=== PATIENT | female | born 1985 | race Caucasian/White ===

== ENCOUNTER 2024-08-02 10:05 | Day surgery (SDC) | payer OTHER, SELFPAY ==
[2024-08-02] VITALS (13 sets, daily range): BP systolic 108–125; BP diastolic 61–78; PULSE 76–95; RESP 13–16; TEMP 36.6–38.1; O2SAT 97–100; BMI 22.4
--- NOTE | 2024-08-02 10:15 | APP_PTH ---
PATIENT: MICHELET LOU LOC: [facility] [place] U#:[id number] AGE/SX: 38/F ROOM: RE08/02/[address]: Dr. Brodie Paul MD : 1985 BED: DIS: 08/02/2024 SPEC #: [id number] RECD: 08/03/24 11:32 STATUS: HUGO REYoselin #: [id number] FLORENCIO: 08/02/24 10:[address]: Brodie Paul DEPT: SURGICAL PATHOLOGY RECD BY: Josue Bob ENTERED: 08/03/24 11:32 SP TYPE: APPENDIX OTHR DR: Dr. Melissa Colvin MD Tissues: A - Appendix, NOS Procedures: Surgery Specimen Level III HEADER OPERATION: Laparoscopic appendectomy PRE-OP DIAGNOSIS: Acute appendicitis with localized peritonitis TISSUE SUBMITTED: A- Appendix MICROSCOPIC DIAGNOSIS A. Appendix, appendectomy: * Acute suppurative appendicitis with transmural inflammation and periappendicitis * One benign periappendiceal lymph node MICROSCOPIC DESCRIPTION Slides are reviewed. GROSS DESCRIPTION A. Received in formalin in a container labeled with the patient's name, date of , and appendix is an intact 6.8 x 1.1 cm appendectomy specimen with mesoappendix measuring 2 cm in thickness. The serosa is delgado-ramirez and predominately smooth with a moderate amount of adherent exudate. The stapled margin is inked black and serial sections reveal a lumen ranging from 0.3 to 0.7 cm. A 0.5 x 0.4 x 0.3 cm firm fecalith is identified. The remaining lumen is filled with a creamy, thick white-pink material. There is an average wall thickness of 0.3 cm. No perforation is identified. Within the mesoappendix is a 0.3 x 0.3 x 0.3 cm delgado-pink lymph node candidate. Telephone Order Dispatcher sections:A1. Resection margin, en face with cross-sections with area of fecalith and lymph node candidateA2. Tip of appendix, bisected with exudate [facility] 08/07/2024 CPT:03377
--- NOTE | 2024-08-02 10:29 | EDS_ITS ---
HPI History of Present Illness Chief Complaint: Abd Pain Detail of Chief Complaint: Abdominal pain is localized to the right lower quadrant. Onset/Context/Timing Onset: Today and Hours Context: Sudden Onset Timing: Continuous Quality: Initially an explosion in her abdomen that was generalized and now localize Location: Proximity McBurney's point Current Severity: Mild Maximum Severity: Moderate Worsened by: Movement and palpation Relieved by: Nothing Associated Symptoms Associated Symptoms: Nausea and anorexia Narrative Narrative: Patient is a 38-year-old woman. She uses condoms with her for control. She denies fever, chills night sweats. She denies HEENT symptoms. She denies cardiac symptoms. She denies respiratory symptoms. She states this morning she had a explosion like sensation in her abdomen that was generalized. She now complaining of pain in the right lower quadrant. She denies intolerance to greasy or fried foods. She denies history of endometriosis, ovarian cysts. She has no symptoms of . There is no history of renal ureterolithiasis. There is no family history of renal or ureterolithiasis. She denies dysuria, frequency, urgency or hematuria. Prior similar symptoms: No Recent Illness/Hospitalization: No PFSH PFSH Medical History no medical history no medical history Home Medications ?Medication ?Instructions ?Recorded ?Last Taken ?Type NK 08/02/24 Unknown History Surgical History no surgical history no surgical history Social History (Updated 08/02/24 @ 11:[address] Colin Andres MD) household members: spouse and children Smoking Status: Never smoker ROS ROS ED Constitutional Constitutional ED: Denies chills, fever(s), subjective, sweats or weight loss Eyes Eyes: Denies blurry vision or change in vision ENT ENT ED: Denies ear pain, rhinorrhea or sore throat Cardiovascular Cardiovascular: Denies chest pain, palpitations or racing heartbeat Respiratory/Chest Respiratory/Chest: Denies cough, dyspnea or dyspnea on exertion Gastrointestinal Gastrointestinal: Reports abdominal pain, nausea and other Details: Anorexia. ; Denies constipation, diarrhea, melena or vomiting Genitourinary Genitourinary ED: Denies dysuria, hematuria or urinary frequency Musculoskeletal Musculoskeletal: Denies arthralgias, back pain or myalgias Integumentary Denies rash Neurologic Neurologic: Denies headache(s) or paresthesias Hematologic/Lymphatic Hematologic/Lymphatic: Reports systems reviewed and no addt'l complaints, except as documented EXAM Physical Exam Const Vital Signs: 08/02/24 10:07 Temperature 97.8 F Temperature Source Temporal Pulse Rate 95 Respiratory Rate 16 Blood Pressure 125/78 H Blood Pressure Mean 93 Pulse Ox 99 Oxygen Delivery Method Room Air Positive well nourished and well developed General Appearance ED: well developed, NAD and pallor HEENT Reports moist mucous membranes HEENT Narrative: Head is atraumatic, cephalic. Ears normal. Nares patent. Eyes PERRL and EOMs intact bilaterally General Eye ED: Negative for pale conjunctiva or scleral icterus Neck no lymphadenopathy, supple and no JVD Resp normal respiratory effort and clear to auscultation bilaterally Cardio regular rate, regular rhythm, S1 normal heart sound, S2 normal heart sound and no murmurs GI normal to inspection, nondistended, normoactive bowel sounds and non-distended; Negative for non-tender or hepatosplenomegaly Auscultation: hypoactive bowel sounds Palpation: soft, tender McBurney's point, guarding RLQ and rebound tenderness present other ( localized inferior McBurney's point); Negative for splenomegaly or mass Back/Spine no CVA tenderness Extremity normal to inspection Neuro oriented x3 and CN's II-XII intact bilaterally Sensorium / Orientation: alert Skin no rashes or lesions noted, no wounds and skin turgor normal General Skin Exam: elasticity normal and pallor MDM MDM MDM Narrative Medical decision making narrative: Differential diagnosis would include appendicitis, mesenteric adenitis, regional enteritis, diverticulitis, abdominal pain of unknown etiology. Workup included CBC, electrolyte panel, UA test and CT of the abdomen pelvis IV contrast. Lab Data Attestation: I reviewed the patient's lab results. Lab results narrative: White count is elevated 14.1 with shift. Labs: Laboratory Results - last 24 hr 08/02/24 11:02 WBC 14.1 H RBC 4.74 Hgb 14.0 Hct 41.3 MCV 87.1 MCH 29.5 MCHC 33.9 RDW Std Deviation 39.6 RDW Coeff of Mckayla 12.3 Plt Count 315 MPV 10.3 Immature Gran % (Auto) 0.400 Neut % (Auto) 89.7 H Lymph % (Auto) 6.4 L [place] % (Auto) 3.0 Eos % (Auto) 0.1 Baso % (Auto) 0.4 Absolute Neuts (auto) 12.7 H Absolute Lymphs (auto) 0.91 Nucleated RBC % 0 Sodium 139 Potassium 3.8 Chloride 106 Carbon Dioxide 22.9 Anion Gap 11 BUN 10 Creatinine 0.71 Estim Creat Clear Calc 104.47 Est GFR (MDRD) Non-Af 111 BUN/Creatinine Ratio 13.8 Glucose 107 H Calcium 9.3 Radiography Diagnostic Testing: CT was reviewed by me. Axial view was only available. The appendix appears abnormal. Will wait for the coronal/sagittal review. Patient not have appendicolith. The appendix is dilated. There is some mild inflammation. The success with appendicitis. Management Discussion w/another healthcare provider: Referral Coordinator (Spoke with Dr. Brodie Paul. He will send him to his nurse practitioner. He will then come up to see patient once he completes his present case.) Discharge Plan Triage Chief Complaint: Abd Pain ED Provider: Colin Andres Dx/Rx/DC Orders Clinical Impression: Acute appendicitis with localized peritonitis Prescriptions: No Action NK Primary Care Provider: Melissa Colvin Referrals: Melissa Colvni MD [Primary Care Provider] - Print Language: [place] Disposition Disposition: Acute Care Hospital [facility]
--- NOTE | 2024-08-02 11:15 | CT_ITS ---
PROCEDURE: ABDOMEN/PELVIS W IV CONT ONLY 08/02/2024 REASON FOR EXAM: ANOREXIA, PAIN IN PROXIMITY OF MCBURNEY'S POINT Diarrhea TECHNIQUE: Abdomen and pelvis CT with intravenous contrast. Coronal and Sagittal reconstruction series were provided. PATIENT PREPARATION: Per protocol ORAL CONTRAST TYPE: None. CONTRAST: Isovue-300 VOLUME: 90 mL IV One or more dose reduction techniques were used (e.g., Automated exposure control, adjustment of the mA and/or kV according to patient size, use of iterative reconstruction technique. RADIATION DOSE SUMMARY: DLP: 718.50 mGycm COMPARISON: None FINDINGS: Lung bases: Clear Liver: Normal size. No mass. Gallbladder: Within normal limits Spleen: Normal size. Pancreas: Normal size without evidence of mass surrounding inflammation or ductal dilation. Adrenals: No nodule Kidneys: Normal renal sizes. No hydronephrosis. Bladder: No wall thickening Reproductive Organs: Normal uterine size and contour. Ovaries are unremarkable. Bowel: No bowel obstruction. Appendix: Enlargement, wall thickening, and inflammatory stranding. Lymph nodes: No suspicious lymph node enlargement. Vasculature: The abdominal aorta and IVC are normal. Peritoneum / Retroperitoneum: Small free fluid in the pelvis Bones: Normal thoracolumbar vertebral alignment. CT/Abdomen/Pelvis W IV Cont ONLY IMPRESSION: Acute appendicitis without finding of complication. Reading Location: [facility]
[2024-08-02 11:28] LABS: Absolute Lymphocyte Count 0.91 X10^3/uL (0.83-4.51); Absolute Neutrophil Count 12.7 X10^3/uL (2.0-7.7); Basophil# 0.06 X10^3/uL; Basophil% 0.4 % (0-1); Eosinophil# 0.01 X10^3/uL; Eosinophils% 0.1 % (0-5); Hematocrit 41.3 % (37-47); Lymphocyte # 0.91 X10^3/ul (0.83-4.51); Lymphocyte % 6.4 % (19-41); Mean Corp Hgb Conc 33.9 g/dL (32-36); Mean Corpuscular Hgb 29.5 pg (27.0-32.0); Mean Corpuscular Volume 87.1 fL (81-99); Mean Platelet Vol. 10.3 fl (6.2-12.0); Monocyte# 0.43 X10^3/uL; NRBC Flagged by Analyzer 0 % (0-5); Neutrophil # 12.68 X10^3/uL (2.7-7.7); Neutrophil % 89.7 % (47-70); Platelet Count 315 K/mm3 (150-450); RBC Distribution Width CV 12.3 % (11.6-14.6); RBC Distribution Width SD 39.6 fl (35.1-43.9); Red Blood Count 4.74 M/mm3 (4.2-5.4); White Blood Count 14.1 K/mm3 (4.4-11.0)
[2024-08-02 11:34] LABS: Anion Gap 11 (5-15); BUN 10 mg/dL (4-19); BUN/Creat Ratio 13.8 RATIO (10-20); Calcium,Total 9.3 mg/dL (7.6-11.0); Carbon Dioxide 22.9 mmol/L (21.0-32.0); Chloride 106 mmol/L (98-108); Creatinine, Serum 0.71 mg/dL (0.70-1.20); EST Glomerular Filtration Rate 111 (>60); Estimated Creatinine Clearance 104.47 ml/min (50-250); Glucose 107 mg/dL (70-99); Potassium 3.8 mmol/L (3.3-5.1); Sodium Level 139 mmol/L (133-145)
[2024-08-02 12:07] LABS: hCG Titer Quant., Serum < 1 mIU/mL (<9 non-preg)
[2024-08-02 12:31] LABS: Mucous, Urine 0 SEEN /hpf (<or=2+)
--- NOTE | 2024-08-02 12:33 | PCM.HP.STD ---
HPI - General General Date of Admission: 08/02/24 Date of Service: 08/02/24 Chief Complaint: Right lower quadrant pain HPI Narrative MICHELET LOU, is a 38 F who presents with 1 day history of right lower quadrant pain. Patient notes waking up at 0700AM with stomach cramps. She notes having a solid bowel movement, which relieved some pressure however she still noted pressure in the RLQ. Pain was associated with nausea. No fever or vomiting noted. She notes history of constipation, however her current symptoms are different then what she usually experiences with constipation. She denies any urinary symptoms, burning, frequency or urgency etc. She denies any previous abdominal surgeries or surgery ever. She notes her last meal was last night. She denies any blood thinners. She denies any medication allergies. CT scan of the ab/pel demonstrated acute appendicitis. WBC 14.1. Patient denies any cardiac or pulmonary history. PFSH Medical History no medical history Home Medications ?Medication ?Instructions ?Recorded ?Last Taken ?Type ascorbate calcium (vitamin C) 500 1 g PO DAILY 08/02/24 08/01/24 History mg tablet cetirizine 10 mg tablet (24Hour 10 mg PO DAILY PRN allergy symptoms 08/02/24 08/01/24 History Allergy) cholecalciferol (vitamin D3) 125 125 mcg PO DAILY 08/02/24 08/01/24 History mcg (5,000 unit) tablet (Vitamin D3) magnesium citrate 100 mg tablet 100 mg PO DAILY 08/02/24 08/01/24 History mecobalamin (vitamin B12) 500 mcg 1 mcg PO DAILY 08/02/24 08/01/24 History chewable tablet kvfifadr-ttvqxbsm-emuve acid 240 1 tab PO DAILY 08/02/24 08/01/24 History mcg-vit K1 150 mcg-herb 357 tablet (Alive Women's 50 Plus Ultra Multivitamin) Allergy/AdvReac Type Severity Reaction Status Date / Time No Known Allergies Allergy Verified 08/02/24 11:54 Surgical History (Updated 08/02/24 @ 12:31 by Gini Leblanc) H/O wisdom tooth extraction Surgical History no surgical history Social History (Updated 08/02/24 @ 12:31 by Gini Leblanc) household members: spouse and children housing: house Smoking Status: Never smoker ROS Constitutional Constitutional: Reports systems reviewed and no addt'l complaints, except as documented Eyes Eyes: Reports systems reviewed and no addt'l complaints, except as documented ENT HEENT: Reports systems reviewed and no addt'l complaints, except as documented Cardiovascular Cardiovascular: Reports systems reviewed and no addt'l complaints, except as documented Respiratory/Chest Respiratory/Chest: Reports systems reviewed and no addt'l complaints, except as documented Gastrointestinal Gastrointestinal: Reports systems reviewed and no addt'l complaints, except as documented Genitourinary Genitourinary: Reports systems reviewed and no addt'l complaints, except as documented Musculoskeletal Musculoskeletal: Reports systems reviewed and no addt'l complaints, except as documented Integumentary Integumentary: Reports systems reviewed and no addt'l complaints, except as documented Neurologic Neurologic: Reports systems reviewed and no addt'l complaints, except as documented Psychiatric Psychiatric: Reports systems reviewed and no addt'l complaints, except as documented Endocrine Endocrinology: Reports systems reviewed and no addt'l complaints, except as documented Hematologic/Lymphatic Hematologic/Lymphatic: Reports systems reviewed and no addt'l complaints, except as documented Allergic/Immunologic Allergic/Immunologic: Reports systems reviewed and no addt'l complaints, except as documented Vital Signs Vital Signs Vital Signs: 08/02/24 10:07 Temperature 97.8 F Temperature Source Temporal Pulse Rate 95 Respiratory Rate 16 Blood Pressure 125/78 H Blood Pressure Mean 93 Pulse Ox 99 Oxygen Delivery Method Room Air Weight Weight: 143 lb Body Mass Index (BMI) 22.4 Physical Exam Const alert, oriented x3 and no apparent distress HEENT normocephalic and head/scalp atraumatic Eyes PERRL Neck full ROM Lymph Lymphatic: no lymphadenopathy noted Resp normal respiratory effort and normal air movement Cardio regular rate and regular rhythm GI GI Narrative: Abdomen- soft, tenderness in the right lower quadrant. no CVA tenderness Back/Spine no CVA tenderness Extremity normal to inspection Skin no rashes or lesions noted Neuro moves all extremities, no focal motor deficits and no sensory deficits noted Psych mental status grossly normal, thought process normal, cooperative and affect normal Results Lab / Micro Data 08/02/24 11:02 08/02/24 11:02 Labs: Laboratory Results - last 24 hr 08/02/24 11:02: WBC 14.1 H, RBC 4.74, Hgb 14.0, Hct 41.3, MCV 87.1, MCH 29.5, MCHC 33.9, RDW Std Deviation 39.6, RDW Coeff of Mckayla 12.3, Plt Count 315, MPV 10.3, Immature Gran % (Auto) 0.400, Neut % (Auto) 89.7 H, Lymph % (Auto) 6.4 L, [place] % (Auto) 3.0, Eos % (Auto) 0.1, Baso % (Auto) 0.4, Absolute Neuts (auto) 12.7 H, Absolute Lymphs (auto) 0.91, Nucleated RBC % 0, Sodium 139, Potassium 3.8, Chloride 106, Carbon Dioxide 22.9, Anion Gap 11, BUN 10, Creatinine 0.71, Estim Creat Clear Calc 104.47, Est GFR (MDRD) Non-Af 111, BUN/Creatinine Ratio 13.8, Glucose 107 H, Calcium 9.3, HCG, Quant < 1 Imaging Radiology Impression Abdomen/Pelvis CT 08/02/24 11:15 IMPRESSION: Acute appendicitis without finding of complication. Reading Location: [facility] Assessment & Plan Assessment/Plan (1) Acute appendicitis with localized peritonitis: QUALIFIERS: Appendicitis gangrene presence: unspecified whether gangrene present Appendicitis perforation presence: without perforation Appendicitis abscess presence: without abscess Qualified Code(s): K35.30 - Acute appendicitis with localized peritonitis, without perforation or gangrene PLAN: I have been consulted in conjunction with Dr. Paul. Patient is a 38 y/o F who presented with a 1 day history of right lower quadrant pain. CT scan of ab/pel is consistent with acute appendicitis. Dr. Paul will plan to perform a laparoscopic appendectomy. Procedure details, risks and benefits have been explained. Patient and her mother have had the opportunity to ask and have questions answered. Patient verbally understands and agrees with the plan. Thank you for allowing us to participate in this patient's care. Charges/Coding Visit Charges OBSV E&M: 36694 Observ/hosp same date L2
[2024-08-02] MEDS: Piperacil/Tazobactam 4.5 GM in 0.9% Normal Saline (100mL MB+) 100 ML IV (12:35)
[2024-08-02 12:39] LABS: Color, Urine Straw (Yellow); Glucose, Dipstick Normal (Normal); Ketone-Dipstick 50 mg/dl (Negative); Leukocyte Esterase-Dipstick 500 /ul (Negative); Nitrite-Dipstick Negative (Negative); Occult Blood-Urine 50 /ul (Negative); Urine Bilirubin Dipstick Negative (Negative); Urine Clarity Clear (Clear); Urine Urobilinogen Normal (Normal)
[2024-08-02 12:58] LABS: White Blood Cells 10-25 SEEN /hpf (0-5)
[2024-08-02 12:59] LABS: Bacteria 2+ /hpf (None Seen); Red Blood Cells-Urine 0-5 SEEN /hpf (0-5); Squamous Epithelial Cells - UA 0-5 SEEN /hpf (5-10)
[2024-08-02] MEDS: Bupiv/Epi 0.25% 30 ML Vial (13:24)
--- NOTE | 2024-08-02 13:25 | PCM.PRE.AN2 ---
ASA Classification* ASA Classification ASA Classification: 1 Assessment & Plan Anesthesia* Anesthesia Assessment Anesthesia Assessment: Discussed sedation and/or anesthesia options, risks, benefits, and alternatives with patient/parents/legal guardian/POA. Questions invited. The patient/parents/legal guardian/POA seems to understand and agrees to proceed with anesthesia plan. Reviewed the physical assessment, medical history, allergy history and patient home medications list prior to surgery/procedure/anesthetic and documented any changes. Performed airway and anesthesia risk assessments. Anesthesia Type Anesthesia Type: General History Source History Obtained from:: Patient and Chart Anesthesia Focused Assessment* Temperature: 97.9 F Pulse Rate: 95 Blood Pressure: 117/78 Respiratory Rate: 13 Pulse Ox: 98 Oxygen Delivery Method: Room Air Airway Assessment Mouth opens: >3 cm Mallampati Score: I Teeth Condition: Caps/Crowns (upper right;intact) Neck Range of motion (ROM): Full ROM Focused Labs Anesthesia Preop lab: CBC WBC 14.1 K/mm3 (4.4-11.0) H 08/02/24 11:02 08/02/24 RBC 4.74 M/mm3 (4.2-5.4) 08/02/24 11:02 08/02/24 Hgb 14.0 g/dL (12.0-15.0) 08/02/24 11:02 08/02/24 Hct 41.3 % (37-47) 08/02/24 11:02 08/02/24 Plt Count 315 K/mm3 (150-450) 08/02/24 11:02 08/02/24 CHEMISTRY Potassium 3.8 mmol/L (3.3-5.1) 08/02/24 11:02 08/02/24 Sodium 139 mmol/L (133-145) 08/02/24 11:02 08/02/24 BUN 10 mg/dL (4-19) 08/02/24 11:02 08/02/24 Creatinine 0.71 mg/dL (0.70-1.20) 08/02/24 11:02 08/02/24 Glucose 107 mg/dL (70-99) H 08/02/24 11:02 08/02/24 COAG HCG, Quant < 1 mIU/mL (<9 non-preg) 08/02/24 11:02 08/02/24 Pre-Assessment Diagnosis/Proposed Procedure Planned Operative Procedure(s): laparoscopic appendectomy Anesthesia History 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 When Was Last Pacemaker Check QUESTION #4 FULL TEXT: You/Your Family Experience fever (hyperthermia) with Anesthesia Last Oral Intake Last Oral intake: Last Oral Intake NPO since 19:00 08/02/24 12:30 Meds taken in AM with sips of water? Meds patient instructed to take am of surgery PONV PONV - caramel candy maker: PONV - caramel candy maker Female HX of Motion Sickness HX of N/V After Surgery Non-Smoker Duration of Surgery greater than 60 minutes Number of Risk Factors PONV Score Height & Weight Height & Weight: Anesthesia: Height & Weight Height 5 ft 7 in 08/02/24 12:30 Weight: 64.864 kg 08/02/24 12:30 Body Mass Index (BMI) 22.4 08/02/24 12:30 Respiratory Assessment Respiratory Assessment - caramel candy maker: Respiratory Tract Infection Hx - caramel candy maker Hx Respiratory Tract Infection No 08/02/24 12:30 STOP Sleep Apnea STOP Sleep Apnea - caramel candy maker: STOP Sleep Apnea - caramel candy maker Hx Hypertension No 08/02/24 12:30 Hx Sleep Apnea No 08/02/24 12:30 CPAP BIPAP Do you snore loudly (louder Yes 08/02/24 12:30 than talking or can be heard Do you often feel tired/ No 08/02/24 12:30 fatigued/ sleepy during daytime? Has anyone observed you stop No 08/02/24 12:30 breathing during sleep? STOP Results Negative 08/02/24 12:30 QUESTION #5 FULL TEXT : Do you snore loudly (louder than talking or can be heard through closed doors)? 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 Specify any problems Hx of Preganancy in last 3 Months Nurse Filling Out Transfusion & Questions: Date: Time: Patient unable to answer at this time (ie. confused, unrespo /Reproduction History /Reproductive History - caramel candy maker: /Reproductive Hx- caramel candy maker Hx Now No 08/02/24 12:30 Gestational Age (in weeks): EDC: Hx Hx Para Hx Section SAB No 08/02/24 10:07 PFSH Medical History no medical history no medical history Home Medications ?Medication ?Instructions ?Recorded ?Last Taken ?Type ascorbate calcium (vitamin C) 500 1 g PO DAILY 08/02/24 08/01/24 History mg tablet cetirizine 10 mg tablet (24Hour 10 mg PO DAILY PRN allergy symptoms 08/02/24 08/01/24 History Allergy) cholecalciferol (vitamin D3) 125 125 mcg PO DAILY 08/02/24 08/01/24 History mcg (5,000 unit) tablet (Vitamin D3) magnesium citrate 100 mg tablet 100 mg PO DAILY 08/02/24 08/01/24 History mecobalamin (vitamin B12) 500 mcg 1 mcg PO DAILY 08/02/24 08/01/24 History chewable tablet cszrdagj-kdsvilnu-pwapd acid 240 1 tab PO DAILY 08/02/24 08/01/24 History mcg-vit K1 150 mcg-herb 357 tablet (Alive Women's 50 Plus Ultra Multivitamin) Allergy/AdvReac Type Severity Reaction Status Date / Time No Known Allergies Allergy Verified 08/02/24 11:54 no significant family history Surgical History H/O wisdom tooth extraction Surgical History no surgical history Social History household members: spouse and children housing: house Smoking Status: Never smoker Review of Systems (Anesthesia) ROS Narrative System reviewed and no additional complaints, except as documented.
[2024-08-02] MEDS: 0.9% Normal Saline (1000mL) 1,000 ML 15 ML IV (13:30)
--- NOTE | 2024-08-02 14:48 | OP.PCM_ITS ---
Procedures Digestive 40xxx-49xxx: [address]197 Laparoscopy appendectomy Operative Report (Standard) Operative Information Date of Procedure: 08/02/24 Pre-Operative Diagnosis: Acute appendicitis with appendicolith Post-Operative Diagnosis: Acute uncomplicated appendicitis with appendicolith Surgery/Procedure Performed: Laparoscopic appendectomy strap maker: Yes Wildlife Forensic Geneticist: Carroll Torres Tasks completed by corporate legal assistant: Opening and Other (Laparoscopic camera operation) Type of Anesthesia: General/Supplemental RN Documented Start/Stop Times: Operation Date: 08/02/24 10:15 Case Time Into Pre-Op 08/02/24 12:56 Out of Pre-Op 08/02/24 13:41 Anesthesia Start 08/02/24 13:46 Into Room 08/02/24 13:46 Procedure Start 08/02/24 14:04 Procedure End 08/02/24 14:48 Anesthesia End 08/02/24 14:53 Out of Room 08/02/24 14:53 Into Recovery 08/02/24 14:56 Out of Recovery 08/02/24 15:59 Into Phase II Recovery 08/02/24 16:00 Out of Phase II 08/02/24 17:10 Procedure Start Time: 14:04 Procedure Stop Time: 14:48 Select all DRAINS/GRAFTS/IMPLANTS that apply: None Estimated Blood Loss: 5 Specimen collected: Yes Description of specimen(s) removed: Appendix Description of surgery: After appropriate identification in the preoperative holding area, the patient was brought to the operating room and placed supine on the operating room table. Antibiotics had been preoperatively administered by emergency medicine. Patient was then induced with general endotracheal anesthetic. The abdomen was prepped and draped in usual sterile fashion. Formal timeout was conducted to confirm both the patient and the procedure. A supraumbilical incision was made and carried down to the level of the fascia which was sharply opened. After opening the peritoneum in like fashion a finger sweep was made to confirm position, and a balloon trocar was placed and pneumoperitoneum was established to 15 mmHg. Patient was positioned in Trendelenburg with the left side down. Two additional 5 mm trocars were placed in the left lower quadrant and suprapubic positions. The peritoneum was inspected and there were no signs of inadvertent injury from this Abad entry. The appendix was visualized with a moderate amount of inflammation as evidenced by dilation and fibrinous exudate. Using blunt laparoscopic dissection, a window was made in the mesoappendix adjacent to the appendiceal base. Then the base of the appendix was sealed and amputated with the use of an Endo TABITHA stapler. The mesoappendix was divided with application of a laparoscopic harmonic. The appendix was placed in an Endo Catch bag. The staple line was inspected for hemostasis. After hemostasis was confirmed, the appendix was removed from the umbilical port site. There is a small amount of simple serous fluid in the pelvis which appeared reactive. Pneumoperitoneum was then evacuated and the supraumbilical port site fascia was closed with #1 Vicryl in a [id number] fashion. The port sites were infiltrated with 30 mL local anesthetic. The skin of each port site was closed with 4-0 Monocryl in a subcuticular fashion. Steri-Strips and OpSite dressings were applied. Patient tolerated procedure well without any apparent complications. They were awoken from general anesthetic without issue and beyer sferred to post anesthesia care unit for ongoing recovery. Surgical Findings: ? Acutely inflamed appendix with significant edema but relative sparing of the base ? No evidence of perforation ? Mild serous fluid of the pelvis about the corpus of the uterus Complications Complications: No Admit VTE Documentation VTE Mechan Device Prophylaxis: SCD's
--- NOTE | 2024-08-02 14:49 | DCINST_ITS ---
Discharge Instructions Diet Discharge Diet: No restrictions Activity Discharge Activity: May Not Drive (No driving while using narcotic pain medication) and May Shower (Postoperative day 1) May shower in (days): 2 Ice area for (Minutes): 20 Lifting Restrictions: No lifting greater than 15 pounds for 2 weeks after surgery Dressing / Incision Call your doctor if your incision/area has: Continuous Slow Oozing, Sudden Increased Bleeding, Increased Pain/ Swelling, Increased Redness, Foul Smelling Discharge and Swelling at the incision site Call your doctor if you observe: Fever of 101 or Higher Remove Dressing in: 2 days (Please leave Steri-Strips intact until they fall off spontaneously or are taken off at your follow-up visit) Cleanse incision/area with: Soap & Water Follow Up Care Please Follow Up With: Brodie Paul MD When: 7-10days postop Test Results: Test results from this visit will be discussed in further detail at your follow- up appointment, if applicable. Discharge Plan Admission Primary Reason for Your Visit: Acute appendicitis Attending Provider: Brodie Paul Primary Care Provider: Melissa Colvin Instructions Print Language: Japanese Discharge Orders/Prescriptions Prescriptions: New oxycodone 5 mg tablet 5 mg PO Q6H PRN (Reason: pain) 3 Days Qty: 10 0RF Continued Alive Women's 50 Plus Ultra MV 240-150 mcg tablet 1 tab PO DAILY cholecalciferol (vitamin D3) [Vitamin D3] 125 mcg (5,000 unit) tablet 125 mcg PO DAILY mecobalamin (vitamin B12) 500 mcg tablet,chewable 1 mcg PO DAILY cetirizine [24Hour Allergy] 10 mg tablet 10 mg PO DAILY PRN (Reason: allergy symptoms) ascorbate calcium (vitamin C) 500 mg tablet 1 g PO DAILY magnesium citrate 100 mg tablet 100 mg PO DAILY Referrals / Follow Up: Melissa Colvin MD [Primary Care Provider] - Disposition Disposition (needs filled in before D/C Order can be placed): Home, Self Care
--- NOTE | 2024-08-02 15:01 | PCM.POST.ANE ---
Anesthesia: Postop Eval I Current Vital Signs Temperature: 98.7 F Pulse Rate: 88 Blood Pressure: 121/61 Respiratory Rate: 16 Pulse Ox: 100 Oxygen Delivery Method: Simple Mask Oxygen Flow Rate (L/min): 6 Assessment Airway patent: Yes Spontaneous unlabored respirations: Yes Mental status: Awake and Calm nausea: No Vomiting: No Anesthesia Complication: No Fluid Hydration Crystalloid volume administer (ml): 1,000 Total IV fluid infused: 1,000 Progress Note Anesthesia document: Postop Eval 1 completed: Yes
[2024-08-02] MEDS: Lactated Ringers 1,000 ML 15 ML IV (15:22)
[2024-08-02] MEDS: oxyCODONE 5 MG Tablet PO (16:32)
--- NOTE | 2024-08-02 20:31 | POSTOPAN2_ITS ---
Anesthesia Postop Eval I Sum Postop Eval Completion status Anesthesia document: Postop Eval 1 completed: Yes Anesthesia Postop Eval I Summary Anesthesia Postop Eval I Summary: Anesthesia Postop Eval I: Assessment Summary Airway patent Yes 08/02/24 15:02 SHELLFISH PROCESSING LABORER.SKOBY Spontaneous unlabored Yes 08/02/24 15:02 SHELLFISH PROCESSING LABORER.ROBYN respirations Mental status Awake,Calm 08/02/24 15:02 SHELLFISH PROCESSING LABORER.SKOBY nausea No 08/02/24 15:02 SHELLFISH PROCESSING LABORER.SKOBY Vomiting No 08/02/24 15:02 SHELLFISH PROCESSING LABORER.SKOBDoyle Anesthesia Postop Eval I: Fluid Summary Crystalloid volume administer 1,000 08/02/24 15:02 SHELLFISH PROCESSING LABORER.SKOBY (ml) Colloids volume administered ( ml) Blood Product volume administered (ml) Total IV fluid infused 1,000 08/02/24 15:02 SHELLFISH PROCESSING LABORER.PROMISEOBDoyle Anesthesia Postop Eval I: Summary Notes Anesthesia Complication No 08/02/24 15:02 SHELLFISH PROCESSING LABORER.PROMISEOBDoyle Anesthesia Complication Comment: Post-operative progress note Anesthesia: Postop Eval II Evaluation Mental status: Awake and Calm Pain Level: 1 nausea: No Vomiting: No Complications Anesthesia Complication: No
--- NOTE | 2024-08-02 20:31 | PCM.POSTANE2 ---
Anesthesia Postop Eval I Sum Postop Eval Completion status Anesthesia document: Postop Eval 1 completed: Yes Anesthesia Postop Eval I Summary Anesthesia Postop Eval I Summary: Anesthesia Postop Eval I: Assessment Summary Airway patent Yes 08/02/24 15:02 JIG BORE TOOL MAKER.SKOBY Spontaneous unlabored Yes 08/02/24 15:02 JIG BORE TOOL MAKER.ROBYN respirations Mental status Awake,Calm 08/02/24 15:02 JIG BORE TOOL MAKER.SKOBY nausea No 08/02/24 15:02 JIG BORE TOOL MAKER.SKOBY Vomiting No 08/02/24 15:02 JIG BORE TOOL MAKER.SKOBDoyle Anesthesia Postop Eval I: Fluid Summary Crystalloid volume administer 1,000 08/02/24 15:02 JIG BORE TOOL MAKER.SKOBY (ml) Colloids volume administered ( ml) Blood Product volume administered (ml) Total IV fluid infused 1,000 08/02/24 15:02 JIG BORE TOOL MAKER.PROMISEOBDoyle Anesthesia Postop Eval I: Summary Notes Anesthesia Complication No 08/02/24 15:02 JIG BORE TOOL MAKER.PROMISEOBDoyle Anesthesia Complication Comment: Post-operative progress note Anesthesia: Postop Eval II Evaluation Mental status: Awake and Calm Pain Level: 1 nausea: No Vomiting: No Complications Anesthesia Complication: No
== END 2024-08-02 17:11 | disposition home or self-care (01) ==
LOC: ED 11:47 → SDC 11:55 → AC 11:56
PROVIDERS: Emergency Provider Emergency Medicine; PCP Family Medicine; Visit Provider Surgery
PROC: 0DTJ4ZZ Resection of Appendix, Percutaneous Endoscopic Approach (ICD-10-PCS; CPT 44970; principal; 2024-08-02 09:55)
DX: K35.30 Acute appendicitis with localized peritonitis, without perforation or gangrene (principal)
CPT/HCPCS: 44970; 00840; 74177; 80048; 81001; 84156; 84702; 85025; 88304; 99284; Q9967; A4216; J2405